=== PATIENT | male | born 2000 | race Caucasian/White ===

== ENCOUNTER 2024-10-31 11:41 | Emergency (ER) | payer SELFPAY ==
[2024-10-31 11:51] VITALS: BP 137/88; PULSE 96; RESP 18; TEMP 36.6; O2SAT 95; BMI 34.0
--- NOTE | 2024-10-31 12:22 | HMH.EDGENADL ---
Discharge Plan Disposition Patient Disposition: Home, Self-Care Prescriptions Prescriptions: New prednisone 20 mg tablet 40 mg PO DAILY 5 Days Qty: 10 0RF Referrals Follow up/Referrals: Provider,Referral, MD [Referring] - See instructions Activity Restrictions/Add. Instructions Additional Instructions/Restrictions: Call your family doctor to establish care for this visit to the emergency department and schedule follow-up within 48 hours to ensure improvement. If you have any worsening of your condition or any other concerning signs or symptoms, return to the emergency department or your primary care doctor for further evaluation. Prednisone each morning after waking up for the next 5 days. Talk to your family doctor about physical therapy referral. Clinical Impressions Clinical Impression: Lumbago Stand Alone Forms Stand Alone Forms: Work/School Release Instructions Patient Instructions: DI for Low Back Pain Print Language Print Language: Occitan Discharge ED Provider: Leoncio Vick General Adult HPI General Chief complaint: Back Pain/Injury Stated complaint: Lower back pain (sharp) Time Seen by Provider: 10/31/24 11:46 Mode of Arrival: Ambulatory Source of Information: Patient Description of Symptoms (Recalled from ER Triage Doc. by RN): Pt presents to the ED with lower back pain. pt reports he was using a wheelbarrow yesterday around 14:00 and he got a sharp pain in his lower back. pt reports the pain gets worse with movement especially when sitting down or standing up. No back surgeries in the past. Pt reports no numbness in his legs. History of Present Illness HPI narrative: Please note that above description of symptoms, in this electronic medical record under categorization of recalled from ER triage doctor by RN are reflective of an initial nursing assessment, however, is not reflective of my full history and physical exam that was personally taken and clarified. Consequentially, this preceding description of symptoms, which may include the patient's categorized chief complaint in the EMR, do not reflect my personal clinical impression, and the ultimate description of history of present illness and patient stated complaints should be deferred to this section of the note. Unless stated otherwise or congruent with this section of the note, additional signs, symptoms, or incongruence should be interpreted as inaccurate with my clinical impression. Related Data Previous Rx's ?Medication ?Instructions ?Recorded prednisone 20 mg tablet 40 mg (2 x 20 mg) PO DAILY 5 days 10/31/24 #10 tabs Allergies Allergy/AdvReac Type Severity Reaction Status Date / Time No Known Allergies Allergy Verified 09/18/19 14:58 [facility] Disclaimer: The information contained in this section may have been updated after the patient was seen, as this information can be updated by other users. Social History Smoking Status: Never smoker alcohol intake: never current occupational status: employed Travel in the last 8 weeks?: None ROS Obtained: Yes All systems reviewed & no additional complaints except as documented Physical Exam General General appearance: alert Head Head exam: atraumatic and normocephalic Eye Eye exam: Present normal appearance, PERRL and EOMI Neck Neck exam: Present normal inspection, full ROM and trachea midline Respiratory Respiratory exam: Absent respiratory distress, wheezes, stridor, accessory muscle use or prolonged expiratory phase Cardiovascular Cardiovascular exam: Present other (Pulses equal symmetric in upper and lower extremities) Abdominal Exam Abdominal exam: Present soft; Absent distention, tenderness or pulsatile mass Extremities Exam Extremities exam: Absent edema Back Exam Back exam: Present tenderness Neurological Exam Neurological exam: Present alert, oriented X3 and CN II-XII intact; Absent motor sensory deficit Skin Skin exam: Present warm and dry; Absent diaphoresis or erythema Medical Decision Making Medical Records Medical records reviewed: Yes I reviewed the patient's medical records. Screening: Per USPSTF and CDC recommendations, given the prevalence of disease in our region, it is our hospital?s policy to screen for HIV and viral Hepatitis for all patients aged 18 and over and those with ongoing risk factors. Mauro Inquiry Pt receiving controlled substance: No Mauro was queried for this patient: No Vital Signs: 10/31/24 11:51 Temperature 97.9 F Temperature Source Oral Pulse Rate [Right] 96 H Respiratory Rate 18 Blood Pressure [Right Arm] 137/88 Blood Pressure Mean [Right Arm] 104 Blood Pressure Source [Right Arm] Automatic Cuff Blood Pressure Position [Right Arm] Standing 02 Sat by Pulse Oximetry 95 Oxygen Delivery Method Room Air Orders (Tests/Meds): ED MEDICATIONS Generic Name Dose Route Start Last Admin Trade Name Freq PRN Reason Stop Dose Admin Dexamethasone 10 mg 10/31/24 12:19 Dexamethasone 4mg Tablet PO 10/31/24 12:20 ONCE ONE Ketorolac Tromethamine 30 mg 10/31/24 12:19 Ketorolac 30mg/Ml Vial IM 10/31/24 12:20 ONCE ONE ORDERS Category Date Time Status HIV Combo Stat Lab 10/31/24 11:59 Ordered Hepatitis C Ab Qual. W/ RFX Stat Lab 10/31/24 11:59 Ordered Medical Decision Narrative: Is a 24-year-old male presenting with back pain. 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 States that he was lifting bags of mulch and doing landscaping activities when he felt a pinch in his back yesterday, 10/30 no radiating of the pain, but it is severe. Today, midline, woke him up from sleep, has not taken any medications for the pain. No bowel or bladder dysfunction, lower extremity weakness, paresthesias, no saddle anesthesia or any other concerning symptoms. Came in for further evaluation. On arrival, very clinically well. He does have midline lumbosacral spine tenderness, but no outward signs of abnormality. No obvious muscle tension or spasms in the paraspinal muscles. History obtained to patient. Differential includes disc herniation, radiculopathy, radiculitis, less likely to be conus medullaris, cauda equina, among others. Patient given Toradol and Decadron p.o.. Imaging of spine including CT and MRI were considered, but patient has no red flag signs or symptoms, no history of IV drug use, no systemic signs or symptoms, and unlikely to have any acute medical or surgical emergency. Because patient at baseline without signs or symptoms of clinical decompensation, deemed appropriate for discharge. I discussed my clinical impression with patient and answered all questions. At this time, the evidence for any other entities in the differential is insufficient to warrant any further testing or ED observation. This was explained as well. Advisory was given that persistent or worsening symptoms require further evaluation. I confirmed the understanding of this discussion. Gut Carrier disclaimer Much of this encounter note is an electronic assistant plant control operator spoken language to printed text. Electronic assistant plant control operator of the spoken language may permit errors. Although I have reviewed the note, some errors may still exist. Critical Care Critical Care Time Critical Care Time: No
[2024-10-31] MEDS: DEXAMETHASONE 4MG TABLET 10 MG PO (12:35)
[2024-10-31] MEDS: KETOROLAC 30MG/ML VIAL 30 MG IM (12:36)
[2024-10-31 12:45] VITALS: BP 132/87; PULSE 89; RESP 14; TEMP 36.6; O2SAT 98
== END 2024-10-31 12:46 | disposition home or self-care (01) ==
PROVIDERS: Emergency Provider Emergency Medicine; PCP Family Medicine
DX: M54.50 Low back pain, unspecified (principal); X50.0XXA Overexertion from strenuous movement or load, initial encounter
CPT/HCPCS: 96372; 99283; J1885; J8540

== ENCOUNTER 2025-03-24 10:42 | Emergency (ER) | payer SELFPAY ==
[2025-03-24 10:49] VITALS: BP 146/81; PULSE 72; RESP 17; TEMP 36.6; O2SAT 98; BMI 34.0
--- OUTSIDE RECORDS SUMMARY | 2025-03-24 10:49 | XMS_ITS | Clinical Summary ---
Author Organization [employer] [facility] Address [address] [place] [id number] Phone Care Team Providers Care Proof Clerk Name Role Phone Ce Henry APRN Primary Care Physician [phone] Conditions or Problems Problem Name Problem Code Onset Date Status Entry Date Provider Comment Standard Description Annotate OBESITY NOS [id number] (SNOMED CT) 02/12 Active 02/12 Yony George MD Obesity WELL CHILD EXAM 880159090 (SNOMED CT) 02/12 Inactive 02/12 Yony George MD Well child visit History of URI ACUTE 31838638 (SNOMED CT) 02/12 Correction 02/12 Yony George MD Acute upper respiratory infection History of SINUSITIS ACUTE 84366876 (SNOMED CT) 02/12 Correction 02/12 Yony George MD Acute sinusitis History of OTITIS MEDIA 10019280 (SNOMED CT) 02/12 Correction 02/12 Yony George MD Otitis media History of EDEMA 537073858 (SNOMED CT) 02/12 Correction 02/12 Yony George MD Edema History of PHARYNGITIS ACUTE 478444085 (SNOMED CT) 02/12 Correction 02/12 Yony George MD Acute pharyngitis History of PHARYNGITIS ACUTE 677355455 (SNOMED CT) 02/12 Removed 02/12 Luna Mableton Acute pharyngitis History of EDEMA 832771799 (SNOMED CT) 02/12 Removed 02/12 Luna Mableton Edema History of OTITIS MEDIA 36677850 (SNOMED CT) 02/12 Removed 02/12 Luna Mableton Otitis media History of SINUSITIS ACUTE 57352570 (SNOMED CT) 02/12 Removed 02/12 Luna Mableton Acute sinusitis History of URI ACUTE 99994877 (SNOMED CT) 02/12 Removed 02/12 Luna Nance Acute upper respiratory infection Medications Medication Instructions Start Date Stop Date Generic Name NDC Provider Observed no known medication s at Medications Administered No information available. Allergies, Adverse Reactions, Alerts Observed no known allergies at Results No information available. Plan of Care Type Date Detail Pending order Immunization(s) Ordered Pending order Vision Screening ; quantitative; bilateral 93152 Pending order VFC Hep A pediat dorcas-adolescent dosage- 2 dose schedule Pending order IMADM THROUGH 18 YR ANY ROUTE 1ST VAC/TOXOID Pending order VFC HPV Gardisil 3 dose schedule Pending order IMADM THROUGH 18 YR ANY ROUTE 1ST VAC/TOXOID Pending order VFC Meningococca l conjugate vaccine Pending order IMADM THROUGH 18 YR ANY ROUTE 1ST VAC/TOXOID Pending order VFC TDaP age 7 y rs or older Pending order IMADM THROUGH 18 YR ANY ROUTE 1ST VAC/TOXOID Pending order IMADM THROUGH 18 YR ANY ROUTE EA ADDL VAC/TOXOID Procedures Code Procedure Name Date Entry Date CPT-50257 Audioscope -pure tone -air only 30466 201 08/24/26 IMMORDER Immunization(s) Ordered 2012 CPT-40178GDE VFC Hep A pediatric- adolescent dosage- 2 dose schedule CPT-37623 IMADM THROUGH 18YR ANY ROUTE 1ST VAC/TOXO ID CPT-74268IYY VFC HPV Gardisil 3 dose schedule CPT-78954 IMADM THROUGH 18YR ANY ROUTE 1ST VAC/TOXO ID CPT-66734SCS VFC Meningococcal conjugate vaccine 02/12 CPT-36474 IMADM THROUGH 18YR ANY ROUTE 1ST VAC/TOXO ID CPT-58950XPG VFC TDaP age 7 yrs or older CPT-56530 IMADM THROUGH 18YR ANY ROUTE 1ST VAC/TOXO ID CPT-35935 IMADM THROUGH 18YR ANY ROUTE EA ADDL VAC/ TOXOID Vital Signs Date Name Value Unit Description BMI (Body Mass Index) 26.72 kg/m2 Bod y Mass Index (Ratio) Body Temperature 98.4 [degF] temperat ure E&M Body Temperature 36.9 Lindsey temperat ure in centigrade E&M BP Diastolic 79 mm[Hg] blood pressu re, diastolic BP Systolic 126 mm[Hg] blood pressur e, systolic Heart Rate 86 /min pulse rate Height 67 [in_us] height E&M Height 170.18 cm height in cent imeters E&M Respiratory Rate 16 /min respirat ory rate E&M Weight Measured 170 [lb_av] weight E& M Weight Measured 170 [lb_av] weight E& M Weight Measured 77.27 kg weight in kilograms E&M Immunizations Vaccine Administration Date Standard Description CVX Co de Dose ipv #1 10 Unknown mmr #2 03 Unknown ipv #2 10 Unknown mmr #1 03 Unknown ipv #4 10 Unknown ipv #3 10 Unknown dtap #5 20 Unknown dtap #3 20 Unknown dtap #4 20 Unknown hib #4 17 Unknown hib #2 17 Unknown varicella#1 21 Unknown dtap #2 20 Unknown hib #3 17 Unknown dtap #1 20 Unknown hib #1 17 Unknown varicella#2 21 Unknown hepbvax#4 45 Unknown hepbvax#2 45 Unknown hepavax #1 85 Unknown hpv #1 62 Unknown hepbvax#3 45 Unknown hepbvax#1 45 Unknown meningoc vax 32 Unknown tdap vax 115 0.0 meningoc vax 32 0.0 Advance Directives No information available.
--- OUTSIDE RECORDS SUMMARY | 2025-03-24 10:50 | XMS_ITS | Encounter Summary ---
Author Organization [facility] Address [facility] [place] [address] Care Team Providers Care Gasoline Finisher Name Role Phone Pcp, No Primary Care Provider [phone] Source Comments This information has been disclosed to you from confidential records protectfrom disclosure by state law. You shall make no further disclosure of thisinformation without the specific, written, and informed release of theindividual to whom it pertains, or as otherwise permitted by law. A generalauthorization for the release of medical or other information is not sufficientfor the purposes of the release of HIV test results or diagnoses. [id number] Health Encounter Details Date Type Department Care Team (Late st Contact Info) Description 10/18/2017 Orders Only [facility] [place] [facility] [address] [facility] [address] [place] [address] Harvinder Bender MD Social History Tobacco Use Types Packs/Day Years Used Date Smoking Tobacco: Never Smokeless Tobacco: Never Alcohol Use Standard Drinks/Week Comments No 0 (1 standard drink = 0.6 oz pur e alcohol) Sex and Gender Information Value Date Recorded Sex Assigned at Not on file Legal Sex Male 8:41 PM EST Gender Identity Not on file Sexual Orientation Not on file documented as of this encounter Plan of Treatment Not on file documented as of this encounter Procedures Procedure Name Priority Date/Time Associated Diagnosis Comments [facility]TERNAL [facility] 10/18/2017 9:40 AM EDT documented in this encounter Results * [facility] External Imaging (10/18/2017 9:40 AM EDT) Anatomical Region Laterality Modality Radiographic Jyotsna ging 10/18/2017 9:40 AM EDT Narrative 10/18/2017 11:00 AM EDT MRI KNEE LEFT WO CONTRAST 10/18/2017 9:40 AM CLINICAL HISTORY: M25.562-Pain in left [id number] COMPARISON: None TECHNIQUE: Multiplanar, multisequence MR images of the left knee were obtained without the use of contrast. FINDINGS: There is bone marrow edema of the apex of the patella with overlying full-thickness chondral loss. There is edema over the lateral femoral condyle noted, but there is no impaction fracture identified. There is no acute patellar retinacular injury. There is some undermining of the patellar attachment of the medial patellofemoral retinaculum. Quadriceps and infrapatellar tendon are intact. Medial and lateral menisci are normal. ACL and PCL are normal. MCL and lateral collateral stabilizers are normal. Femorotibial cartilage surfaces are intact. IMPRESSION: 1. Significant loss of apical patellar cartilage with subchondral reactive changes and lateral femoral condyle bone marrow edema. Findings suggest a prior patellar dislocation with injury to the apical patellar cartilage. The lack of acute signal along the medial patellofemoral retinaculum suggests chronicity of the injury. 2. No other internal arrangement identified. Procedure Note Unknown, Attending Provider - 10/18/2017 MRI KNEE LEFT WO CONTRAST 10/18/2017 9:40 AM CLINICAL HISTORY: M25.562-Pain in left [id number] COMPARISON: None TECHNIQUE: Multiplanar, multisequence MR images of the left knee were obtained without the use of contrast. FINDINGS: There is bone marrow edema of the apex of the patella with overlying full-thickness chondral loss. There is edema over the lateral femoral condyle noted, but there is no impaction fracture identified. There is no acute patellar retinacular injury. There is some underminingof the patellar attachment of the medial patellofemoral retinaculum. Quadriceps and infrapatellar tendon are intact. Medial and lateral menisci are normal. ACL and PCL are normal. MCL and lateral collateral stabilizers are normal. Femorotibial cartilage surfaces are intact. IMPRESSION: 1. Significant loss of apical patellar cartilage with subchondralreactive changes and lateral femoral condyle bone marrow edema. Findings suggest a prior patellar dislocation with injury to the apical patellar cartilage. Thelack of acute signal along the medial patellofemoral retinaculum suggests chronicity of the injury. 2. No other internal arrangement identified. us Harvinder Bender MD [facility] ORDERA BLES Final Result documented in this encounter Visit Diagnoses Not on filedocumented in this encounter Additional Health Concerns Assessment Noted Time PHQ-9 Depression Total Score: 0 10/06/19 18 8:44 AM EDT documented as of this encounter Care Teams Gasoline Finisher Relationship Specialty Start Date End Date Pcp, No No Address PCP - General Pediatrics 10/02/17 documented as of this encounter
--- OUTSIDE RECORDS SUMMARY | 2025-03-24 10:50 | XMS_ITS | Clinical Summary ---
Author Organization [facility] Address [address] 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 Immunizations Immunization Administration Dates Next Due DTaP 03/12/2007, 3,04/18/2002,01/28,2001 DTaP, Unspecified Formulation 06/08/2006 HPV 9 Valent 01/09/2018, 6,01/12/2016,11/01 HPV Quadrivalent 02/12/2013 Hepatitis A, Ped/Adol, 2 Dose 11/02/2015 Hepatitis A, Unspecified Formulation 02/12/2013 Hepatitis B, Unspecified Formulation ,01/28/2002,2001,09/14 HiB, Unspecified Formulation 02/11/2003, 04/18/2002,01/28/2002,11/16 IPV 06/08/2006, 3,04/18/2002,01/28,2001 LAST MANUFACTURED 2011-Pneum ococcal Conjugate 7 Valent 06/08/2006 MMR 03/12/2007,06/08/2006,10/10/2002 Meningococcal Conjugate 01/09/2018,02/12/2013 Tdap 02/12/2013 Varicella 03/12/2007,10/10/2002 Surgical History Surgery Date Site/Laterality Comments WISDOM TOOTH EXTRACTION KNEE CARTILAGE SURGERY 01/24/2018 Left LEFT knee Medial Patellofemoral Ligament reconstruction; [facility] Medical History Medical History Date Comments MRSA (methicillin resistant staph aureus) cultur e positive Family History Medical History Relation Name Comments Heart Abnormality Maternal Aunt 2 congent ial hypertrophy Heart Disease Maternal Grandfather great Heart Abnormality Maternal Grandmother co ngential hypertrophy Heart Disease Maternal Grandmother Diabetes Paternal Grandmother great Relation Name Status Comments Father Alive Maternal Aunt 1 Alive Maternal Aunt 2 Maternal Grandfather Maternal Grandmother Mother Alive Paternal Grandmother Social History Tobacco Use Types Packs/Day Years Used Date Smoking Tobacco: Passive Smo ke Exposure - Never Smoker Smokeless Tobacco: Never Comments:Mom was smoker, aun t who doesn't have custody Alcohol Use Standard Drinks/Week Comments No 0 (1 standard drink = 0.6 oz pur e alcohol) PHQ-2 Answer Date Recorded PHQ-2 Score 0 02/12/2019 Sexually Active Control Partners Comments Yes Sex and Gender Information Value Date Recorded Sex Assigned at Not on file Legal Sex Male 4:54 PM EDT Gender Identity Not on file Sexual Orientation Not on file History Length Weight Head Circum Date/Time Gestation Age D/C Weight APGARs Delivery Method Feeding Method 2001 Labor Duration Days In Hospital Hospital Name Hospital Location [place], [place] Last Filed Vital Signs Vital Sign Reading Time Taken Comments Blood Pressure 143/70 03/03/2023 3:18 PM EDT Pulse 94 03/03/2023 3:18 PM EDT Temperature 36.6 C (97.9 F) 03/03/2023 3:18 PM EDT Respiratory Rate 18 03/03/2023 3:18 PM EDT Oxygen Saturation 97% 08/22/2022 11:15 AM EST Inhaled Oxygen Concentration - - Weight 126 kg (277 lb 12.8 oz) 02/15/2020 6:55 P M EDT Height 193 cm (6' 4 ) 01/29/2020 7:49 PM EDT Body Mass Index 33.81 01/29/2020 7:49 PM EDT Plan of Treatment Health Maintenance Due Date Last Done Comments Annual Wellness Exam 2004 Meningococcal B Vaccine (1 of 2 - Standard) 2017 DTaP/TDaP/Td (7 - Td or Tdap) 02/12/2023 02/12/2013, 03/12/2007, 06/08/2006, Additional history exists COVID-19 Vaccine ( season) 2025 Influenza Vaccine (#1) 2025 Hepatitis B Vaccine Completed 04/18/2002, 01/28/2002, 2001, Additional history exists Pneumococcal Vaccine 0-49 Aged Out 06/08/2006 No longer eligible based on patient's age to complete this topic HPV Completed 01/09/2018, 01/2016, 01/12/2016, Additional history exists Goals Goal Patient Goal Type Associated Problems Recent Progress Patient-Stated? Author Maintain a healthy diet, exercise regularly and maintain an ideal body weight General No Fernando Talavera MA Advance Directives For more information, please contact: [phone] Documents on File Type Date Recorded Patient Roller Inspector And Mender Expl anation GUARDIANSHIP ORDER 01/09/2018 9:03 AM GUARDIANSHIP ORDER 10/02/2015 2:13 PM Oct 02 2015 18:13:21:019 T
--- OUTSIDE RECORDS SUMMARY | 2025-03-24 10:50 | XMS_ITS | Clinical Summary ---
Author Organization [facility] Address [facility] [place] [address] Care Team Providers Care Cook Vegetable Name Role Phone Pcp, No Primary Care Provider [phone] Source Comments This information has been disclosed to you from confidential records protectedfrom disclosure by state law. You shall make no further disclosure of thisinformation without the specific, written, and informed release of theindividual to whom it pertains, or as otherwise permitted by law. A generalauthorization for the release of medical or other information is not sufficientfor the purposes of therelease of HIV test results or diagnoses. [id number] Allergies No known active allergies Medications ibuprofen (ADVIL,MOTRIN) 800 MG tabletIndication s:Acute pain of left knee Take 1 tablet (800 mg total) by mouth 2 times a day with meals. 60 tablet 2 02/22/2018 Active Active Problems Problem Noted Date Diagnosed Date Recurrent dislocation of patella, left 8 Overview (01/10/2018): Added automatically from request for surgery [id number] Recurrent dislocation of left patella 11/02/2017 Chronic pain of left knee 10/05/2017 Social History Tobacco Use Types Packs/Day Years Used Date Smoking Tobacco: Never Smokeless Tobacco: Never Alcohol Use Standard Drinks/Week Comments No 0 (1 standard drink = 0.6 oz pur e alcohol) Sex and Gender Information Value Date Recorded Sex Assigned at Not on file Legal Sex Male 8:41 PM EST Gender Identity Not on file Sexual Orientation Not on file Last Filed Vital Signs Vital Sign Reading Time Taken Comments Blood Pressure 121/53 01/24/2018 12:46 PM EDT Pulse 76 01/24/2018 12:46 PM EDT Temperature 36.5 C (97.7 F) 01/24/2018 12:46 PM EDT Respiratory Rate 12 01/24/2018 12:46 PM EDT Oxygen Saturation 99% 01/24/2018 12:46 PM EDT Inhaled Oxygen Concentration 99% 01/24/2018 1 2:46 PM EDT Weight 106.6 kg (235 lb) 03/29/2018 8:18 AM EDT Height 190.5 cm (6' 3 ) 05/17/2018 8:22 AM EST Body Mass Index 29.37 03/29/2018 8:18 AM EDT Plan of Treatment Not on file Medical Devices Implanted Type Area Value Analyst Device Identifier Shelf Expiration Date Model / Serial / Lot Gft Sft Tis Semitendinosus - [id number] Implanted:Qty: 1 on 01/24/2018 by Harvinder Bender MD at [facility] Main Graft Left: Knee [employer] 10/24/2022 [id number] / / [id number] Scr Intfr Ti 20mm 7mm 1.5mm - [id number] Implanted:Qty: 1 on 01/24/2018 by Harvinder Bender MD at [facility] Main Screw Left: Knee [employer] 08/07/2022 [id number] / / [id number] Insurance Advance Directives For more information, please contact: [phone] * Full Code (Latest Code Status on File) Date Activated Date Inactivated Comments 01/24/2018 11:40 AM 01/24/2018 5:44 PM Care Teams Cook Vegetable Relationship Specialty Start Date End Date Pcp, No No Address PCP - General Pediatrics 10/02/17
--- NOTE | 2025-03-24 10:54 | XR_ITS ---
FINAL REPORT CLINICAL HISTORY: short of breath, chest tightness since last night COMPARISON: 09/18/2019 FINDINGS: A portable view of the chest was obtained. Cardiac and mediastinal silhouettes are within normal limits. The lungs are clear. There is no pleural effusion or pneumothorax. IMPRESSION: No acute process on this portable exam. Reviewed, Interpreted and Dictated by Arlene Esposito MD Transcribed by Vee Mendez Authenticated and [facility]
--- NOTE | 2025-03-24 10:57 | ED_ITS ---
<Statement entered by Frantz Garrison DO - 03/25/25 07:26> I was consulted by the GUANAKO, and we discussed the complexity of problems being addressed. I approved the treatment and management plan for this patient's care in the emergency department, thus performing a substantive portion of the medical decision making. Patient presented with a viral type syndrome symptoms, but also stated a more unique complaint of dyspnea on exertion, pleuritic chest pain, and inability to perform his usual activities secondary to this dyspnea on exertion and pleuritic chest pain. Patient does not have any true risk factors for DVT/PE and has had no lower extremity erythema or edema. No hemoptysis, no testosterone use, no recent surgeries, no prolonged immobilization. D-dimer came back elevated greater than 0.5 and based off clinician just all did not feel that we could apply years criteria. Therefore we decided to proceed with a CT pulmonary embolism study. This study was ultimately negative for acute pulmonary embolism. At this point was felt that his inspiratory chest pain and dyspnea on exertion may be due to bronchitis versus pleurisy. Patient was discharged home in stable condition. Frantz Garrison DO Discharge Plan Disposition Patient Disposition: Home, Self-Care Prescriptions Prescriptions: New ondansetron HCl 4 mg tablet 4 mg PO Q8H PRN (Reason: nausea and vomiting) 5 Days Qty: 20 0RF No Action prednisone 20 mg tablet 40 mg PO DAILY 5 Days Qty: 10 0RF Referrals Follow up/Referrals: Long Hrenandez MD [Primary Care Provider, Medical] - See instructions Activity Restrictions/Add. Instructions Additional Instructions/Restrictions: Increase fluids and rest. Take meds as directed. If any worsening signs or symptoms occur please return to the ED Clinical Impressions Clinical Impression: Gastroenteritis, Respiratory infection Instructions Patient Instructions: Diarrhea, DI for Nausea in Adults Print Language Print Language: Greenlandic Discharge ED Provider: Frantz Garrison General Adult HPI <Nancy Johnson (ED), [employer] - Last Filed: 03/24/25 14:19> General Chief complaint: Abdominal Pain Stated complaint: B/A, SOA, vomiting Time Seen by Provider: 03/24/25 10:50 Mode of Arrival: Ambulatory Source of Information: Patient Description of Symptoms (Recalled from ER Triage Doc. by RN): pt presents to the ED with nausea, vomiting, and body aches that started Monday. pt reports he has had intermittent shortness of breath from he dry heaving. pt states that they have had a virus at home that has been going around. Denies chest pain. History of Present Illness HPI narrative: 24-year-old male presents to the ED today with complaint of nausea, vomiting, body aches and cough that started Monday. States that he has had a viral illness at home no chest pain. He does say that he has a difficult time breathing at times. He says he cannot get a full deep breath. No fevers or chills. No other symptoms at this time Related Data Previous Rx's ?Medication ?Instructions ?Recorded prednisone 20 mg tablet 40 mg (2 x 20 mg) PO DAILY 5 days 10/31/24 #10 tabs ondansetron HCl 4 mg tablet 4 mg PO Q8H PRN nausea and 03/24/25 vomiting 5 days #20 tabs Allergies Allergy/AdvReac Type Severity Reaction Status Date / Time No Known Allergies Allergy Verified 09/18/19 14:58 PFSH <Nancy Johnson (ED), [employer] - Last Filed: 03/24/25 14:19> PFS Disclaimer: The information contained in this section may have been updated after the patient was seen, as this information can be updated by other users. Social History Smoking Status: Never smoker alcohol intake: never current occupational status: employed Travel in the last 8 weeks?: None Have you lived/traveled outside [place] in past 30 days?: No Contact w/someone who lives/traveled outside US past 30 days?: No Exposure to someone with infectious disease in past 14 days?: No Do you have a fever (greater than 100.4 F or 38 C)?: No Have you tested positive for COVID-19?: No Exposed to someone with COVID-19 in past 14 days?: No Do you have a sore throat?: No Do you have a cough?: No Do you have any weakness?: No Do you have any diarrhea?: No Are you experiencing any unusual bleeding?: No Do you have any muscle aches/pain?: Yes Do you have any abdominal pain?: No Are you experiencing loss of taste or smell?: No <Nancy Johnson (ED), [employer] - Last Filed: 03/24/25 14:19> ROS Obtained: Yes Systems reviewed as appropriate & no additional complaints except as documented Constitutional Constitutional: Reports as per HPI Physical Exam <Nancy Johnson (ED), [employer] - Last Filed: 03/24/25 14:19> General General appearance: alert and in no apparent distress Head Head exam: normocephalic Eye Eye exam: Present PERRL and EOMI ENT ENT exam: Present normal oropharynx and mucous membranes moist Neck Neck exam: Present full ROM and trachea midline Respiratory Respiratory exam: Present normal lung sounds bilaterally Cardiovascular Cardiovascular exam: Present regular rate, normal rhythm, normal heart sounds, +S1 and +S2 Abdominal Exam Abdominal exam: Present soft and normal bowel sounds Extremities Exam Extremities exam: Present full ROM and normal capillary refill Neurological Exam Neurological exam: Present alert, oriented X3 and normal gait Skin Skin exam: Present warm, dry and intact Medical Decision Making <Nancy Johnson (ED), [employer] - Last Filed: 03/24/25 14:19> Medical Records Screening: Per USPSTF and CDC recommendations, given the prevalence of disease in our region, it is our hospital?s policy to screen for HIV and viral Hepatitis for all patients aged 18 and over and those with ongoing risk factors. Mauro Inquiry Pt receiving controlled substance: No Mauro was queried for this patient: No Vital Signs: 03/24/25 10:49 03/24/25 10:49 03/24/25 11:00 Temperature 97.8 F 97.8 F Temperature Source Oral Oral Pulse Rate 72 76 Pulse Rate [Right] 72 Respiratory Rate 17 17 Blood Pressure 146/81 H 132/94 H Blood Pressure [Right Arm] 146/81 H Blood Pressure Mean 108 Blood Pressure Mean [Right Arm] 102 Blood Pressure Source Automatic Cuff Blood Pressure Source [Right Arm] Automatic Cuff Blood Pressure Position Supine Blood Pressure Position [Right Arm] Supine 02 Sat by Pulse Oximetry 98 98 99 Oxygen Delivery Method Room Air Room Air 03/24/25 12:01 03/24/25 12:30 Temperature Temperature Source Pulse Rate 78 73 Pulse Rate [Right] Respiratory Rate Blood Pressure 116/80 134/90 Blood Pressure [Right Arm] Blood Pressure Mean Blood Pressure Mean [Right Arm] Blood Pressure Source Blood Pressure Source [Right Arm] Blood Pressure Position Blood Pressure Position [Right Arm] 02 Sat by Pulse Oximetry 98 98 Oxygen Delivery Method Lab Data Lab Results 03/24/25 11:06: SARS-CoV-2 (PCR) Not detected, Influenza A Untype (PCR) Not detected, Influenza Type B (PCR) Not detected 03/24/25 11:08: WBC 9.0, RBC 5.27, Hgb 15.4, Hct 44.3, MCV 84.1, MCH 29.2, MCHC 34.8, RDW 12.2, Plt Count 319, MPV 8.3, Neut % (Auto) 59.1, Lymph % (Auto) 30.0, Sullivan % (Auto) 8.6, Eos % (Auto) 1.6, Baso % (Auto) 0.3, Neut # (Auto) 5.3, Lymph # (Auto) 2.7, Sullivan # (Auto) 0.8, Eos # (Auto) 0.1, Baso # (Auto) 0.0, D-Dimer 0.55 H, Troponin I < 0.01, HCV Ab ARIADNE w/Rflx PCR Qn Negative, HIV Ag/Ab Combo Qual Negative 03/24/25 11:08 Orders (Tests/Meds): ED MEDICATIONS Discontinued Medications Generic Name Dose Route Start Last Admin Trade Name Freq PRN Reason Stop Dose Admin Sodium Chloride 1,000 mls @ 999 mls/hr 03/24/25 10:54 03/24/25 12:39 Sod Chlor 0.9% 1000ml Bag IV 03/24/25 11:54 Infused .Q1H1M ONE Infusion Magnesium Sulfate 2 gm in 50 mls @ 50 mls/hr 03/24/25 10:54 03/24/25 12:39 Magnesium Sulfate 2gm/50ml Premix IV 03/24/25 11:53 Infused ONCE ONE Infusion Iopamidol 80 ml 03/24/25 12:53 03/24/25 12:53 Iopamidol-370 (76%);100ml Bottle IV 03/24/25 12:54 80 ml ONCE ONE Administration Ketorolac Tromethamine 30 mg 03/24/25 10:54 03/24/25 11:19 Ketorolac 30mg/Ml Vial IV 03/24/25 10:55 30 mg ONCE ONE Administration Ondansetron HCl 4 mg 03/24/25 10:57 03/24/25 11:20 Ondansetron 4mg/2ml Vial IV 03/24/25 10:58 4 mg ONCE ONE Administration Sodium Chloride 50 ml 03/24/25 12:53 03/24/25 12:53 0.9 % Sodium Chloride 50 Ml Vial IV 03/24/25 12:54 50 ml ONCE ONE Administration Sodium Chloride 10 ml 03/24/25 12:53 03/24/25 12:53 Sodium Chloride 0.9% 10ml Syr (Rad Only) IV 03/24/25 12:54 10 ml ONCE ONE Administration ORDERS Category Date Time Status CTA Chest [CT angio chest PE protocol] Stat Cat Scan 03/24/25 11:55 Completed Chest XR -- portable [XR chest portable] Stat Exams 03/24/25 10:54 Completed CBC [Complete Blood Count Auto Diff] Stat Lab 03/24/25 11:08 Completed D-Dimer Stat Lab 03/24/25 11:08 Completed HIV Combo Stat Lab 03/24/25 11:08 Completed Hepatitis C Ab Qual. W/ RFX Stat Lab 03/24/25 11:08 Completed Rapid PCR Covid and Flu A/B Stat Lab 03/24/25 11:06 Completed Rapid Strep Scrn Group A [Strep Scrn Group A (Rapid)] Lab 03/24/25 10:54 Ordered Stat Trop I [Troponin I] Stat Lab 03/24/25 11:08 Completed Medical Decision Narrative: patient is a 24-year-old male presenting to the emergency department for evaluation of cough, congestion, vomiting all morning, body aches with difficulty breathing, no chest. Patient is hemodynamically stable and nontoxic- appearing upon arrival, afebrile. Differential diagnosis includes viral illness, strep, pneumonia, among others. Workup will be conducted with hematologic labs, specific imaging. Initial inventions include crystalloid bolus, analgesics. Initial workup reviewed by me hematologic labs are remarkable for normal white count, dimer was 0.55 his CTA was normal as well, troponin was less than 0.01. Patient will be sent home with nausea meds. Patient is going to increase fluids and rest. Patient is safe for discharge home. <Frantz Garrison DO - Last Filed: 03/24/25 11:32> Medical Records Medical records reviewed: Yes I reviewed the patient's medical records. Vital Signs: 03/24/25 10:49 03/24/25 10:49 03/24/25 11:00 Temperature 97.8 F 97.8 F Temperature Source Oral Oral Pulse Rate 72 76 Pulse Rate [Right] 72 Respiratory Rate 17 17 Blood Pressure 146/81 H 132/94 H Blood Pressure [Right Arm] 146/81 H Blood Pressure Mean 108 Blood Pressure Mean [Right Arm] 102 Blood Pressure Source Automatic Cuff Blood Pressure Source [Right Arm] Automatic Cuff Blood Pressure Position Supine Blood Pressure Position [Right Arm] Supine 02 Sat by Pulse Oximetry 98 98 99 Oxygen Delivery Method Room Air Room Air 03/24/25 12:01 03/24/25 12:30 Temperature Temperature Source Pulse Rate 78 73 Pulse Rate [Right] Respiratory Rate Blood Pressure 116/80 134/90 Blood Pressure [Right Arm] Blood Pressure Mean Blood Pressure Mean [Right Arm] Blood Pressure Source Blood Pressure Source [Right Arm] Blood Pressure Position Blood Pressure Position [Right Arm] 02 Sat by Pulse Oximetry 98 98 Oxygen Delivery Method Lab Data Lab Results 03/24/25 11:06: SARS-CoV-2 (PCR) Not detected, Influenza A Untype (PCR) Not detected, Influenza Type B (PCR) Not detected 03/24/25 11:08: WBC 9.0, RBC 5.27, Hgb 15.4, Hct 44.3, MCV 84.1, MCH 29.2, MCHC 34.8, RDW 12.2, Plt Count 319, MPV 8.3, Neut % (Auto) 59.1, Lymph % (Auto) 30.0, Sullivan % (Auto) 8.6, Eos % (Auto) 1.6, Baso % (Auto) 0.3, Neut # (Auto) 5.3, Lymph # (Auto) 2.7, Sullivan # (Auto) 0.8, Eos # (Auto) 0.1, Baso # (Auto) 0.0, D-Dimer 0.55 H, Troponin I < 0.01, HCV Ab ARIADNE w/Rflx PCR Qn Negative, HIV Ag/Ab Combo Qual Negative Orders (Tests/Meds): ED MEDICATIONS Discontinued Medications Generic Name Dose Route Start Last Admin Trade Name Freq PRN Reason Stop Dose Admin Sodium Chloride 1,000 mls @ 999 mls/hr 03/24/25 10:54 03/24/25 12:39 Sod Chlor 0.9% 1000ml Bag IV 03/24/25 11:54 Infused .Q1H1M ONE Infusion Magnesium Sulfate 2 gm in 50 mls @ 50 mls/hr 03/24/25 10:54 03/24/25 12:39 Magnesium Sulfate 2gm/50ml Premix IV 03/24/25 11:53 Infused ONCE ONE Infusion Iopamidol 80 ml 03/24/25 12:53 03/24/25 12:53 Iopamidol-370 (76%);100ml Bottle IV 03/24/25 12:54 80 ml ONCE ONE Administration Ketorolac Tromethamine 30 mg 03/24/25 10:54 03/24/25 11:19 Ketorolac 30mg/Ml Vial IV 03/24/25 10:55 30 mg ONCE ONE Administration Ondansetron HCl 4 mg 03/24/25 10:57 03/24/25 11:20 Ondansetron 4mg/2ml Vial IV 03/24/25 10:58 4 mg ONCE ONE Administration Sodium Chloride 50 ml 03/24/25 12:53 03/24/25 12:53 0.9 % Sodium Chloride 50 Ml Vial IV 03/24/25 12:54 50 ml ONCE ONE Administration Sodium Chloride 10 ml 03/24/25 12:53 03/24/25 12:53 Sodium Chloride 0.9% 10ml Syr (Rad Only) IV 03/24/25 12:54 10 ml ONCE ONE Administration ORDERS Category Date Time Status CTA Chest [CT angio chest PE protocol] Stat Cat Scan 03/24/25 11:55 Completed Chest XR -- portable [XR chest portable] Stat Exams 03/24/25 10:54 Completed CBC [Complete Blood Count Auto Diff] Stat Lab 03/24/25 11:08 Completed D-Dimer Stat Lab 03/24/25 11:08 Completed HIV Combo Stat Lab 03/24/25 11:08 Completed Hepatitis C Ab Qual. W/ RFX Stat Lab 03/24/25 11:08 Completed Rapid PCR Covid and Flu A/B Stat Lab 03/24/25 11:06 Completed Rapid Strep Scrn Group A [Strep Scrn Group A (Rapid)] Lab 03/24/25 10:54 Ordered Stat Trop I [Troponin I] Stat Lab 03/24/25 11:08 Completed ECG Data Tracing #1: I reviewed this ECG and interpreted as documented below: EKG personally turbid by me demonstrates normal sinus rhythm with a rate of 74 bpm, normal axis, no OH prolongation, narrow QRS, no QTc prolongation. No ST elevation or depression. There is an isolated T wave inversion in lead III. No STEMI Critical Care <Nancy Johnson (CRYSTAL), [employer] - Last Filed: 03/24/25 14:19> Critical Care Time Critical Care Time: No
[2025-03-24 11:00] VITALS: BP 132/94; PULSE 76; O2SAT 99
--- NOTE | 2025-03-24 11:17 | ECG_ITS ---
APPROVED REPORT Exam: Resting ECG HR:74 bpm ECG Measurements Heart Rate 74 AXES AZ 153 P 20 QRSd 100 QRS 67 QT 382 T 10 QTc 409 Conclusion normal sinus rhythm Normal axis Normal intervals No STEMI Electronically signed by : Frantz Garrison, 03/24/2025 15:47:17
[2025-03-24 11:19] LABS: Coronavirus 19, PCR Not Detected (NotDetected); Influenza A, PCR Not Detected (NotDetected); Influenza B, PCR Not Detected (NotDetected)
[2025-03-24] MEDS: KETOROLAC 30MG/ML VIAL 30 MG IV (11:19)
[2025-03-24 11:20] LABS: Hematocrit 44.3 % (42.0-52.0); Hemoglobin 15.4 g/dL (14.1-18.0); Immature Granulocytes % 0.4 %; Mean Corpuscular HGB Conc 34.8 g/dL (31.8-35.4); Mean Corpuscular Hemoglobin 29.2 pg (27.0-31.2); Mean Corpuscular Volume 84.1 fl (80-94); Nucleated Red Blood Cells % 0 %; Platelet Count 319 K/mm3 (142-424); Red Blood Count 5.27 M/mm3 (4.60-6.20); Red Cell Distribution Width-SD 37.2 fL; White Blood Count 9.0 K/mm3 (4.8-10.8)
[2025-03-24] MEDS: MAGNESIUM SULFATE IN WATER 2 GM/50 ML PIGGYBACK IV (11:20)
[2025-03-24] MEDS: ONDANSETRON 4MG/2ML VIAL 4 MG IV (11:20)
[2025-03-24] MEDS: 0.9 % SODIUM CHLORIDE 1000ML 1,000 ML 999 ML IV (11:20)
[2025-03-24 11:41] LABS: D-Dimer 0.55 ug/mL (0.0-0.5)
[2025-03-24 11:53] LABS: Troponin I < 0.01 ng/ml (0.00-0.034)
--- NOTE | 2025-03-24 11:55 | CT_ITS ---
FINAL REPORT TECHNIQUE: Axial imaging of the chest is obtained after the administration of contrast. 3-D MIP reformatted images were also obtained and reviewed per PE protocol. CLINICAL HISTORY: short of breath FINDINGS: There is suboptimal opacification of the peripheral pulmonary arteries for pulmonary embolism. There is no central or proximal segmental pulmonary embolism. There is no aortic dissection. Heart size is normal. There is no mediastinal, hilar, or axillary lymphadenopathy. The lungs are clear. There is no pleural or pericardial effusion. Limited evaluation of the upper abdomen is without acute abnormality. No acute osseous abnormality. IMPRESSION: No evidence of pulmonary embolism or aortic dissection within the limitations of exam. Reviewed, Interpreted and Dictated by Arlene Esposito MD Transcribed by Kay Shaver Authenticated and [facility]
[2025-03-24 12:01] VITALS: BP 116/80; PULSE 78; O2SAT 98
[2025-03-24 12:30] VITALS: BP 134/90; PULSE 73; O2SAT 98
[2025-03-24 12:32] LABS: Hepatitis C Ab Qual. W/ RFX NEGATIVE (Negative)
[2025-03-24] MEDS: 0.9 % SODIUM CHLORIDE 50 ML VIAL IV (12:53)
[2025-03-24] MEDS: SODIUM CHLORIDE 0.9% 10ML SYR (RAD ONLY) 10 ML IV (12:53)
[2025-03-24] MEDS: IOPAMIDOL-370 (76%);100ML BOTTLE 80 ML IV (12:53)
[2025-03-24 14:36] VITALS: BP 119/82; PULSE 70; RESP 18; TEMP 36.8; O2SAT 100
== END 2025-03-24 14:37 | disposition home or self-care (01) ==
PROVIDERS: Nurse Practitioner; Emergency Provider Student in an Organized Health Care Education/Training Program; PCP Family Medicine
DX: R06.02 Shortness of breath (principal); R11.2 Nausea with vomiting, unspecified; K52.9 Noninfective gastroenteritis and colitis, unspecified; J98.9 Respiratory disorder, unspecified
CPT/HCPCS: 71045; 71275; 84484; 85025; 85378; 86803; 87389; 87636; 93005; 96361; 96365; 96374; 96375; 99285; J1885; J2405; J3475; J7030; Q9967